=== PATIENT | female | born 1940 | race Hispanic/Latino ===

== ENCOUNTER → 2021-02-09 | Outpatient (CLI) | payer MEDICARE ==
[~2021-02-09] MED LIST: IOHEXOL 350 MG/ML 100ML INFUS..BTL IV ONE
== END | disposition home or self-care (01) ==
LOC: RAH 08:49
PROVIDERS: ATTEND Internal Medicine Cardiovascular Disease
DX: I35.1 Nonrheumatic aortic (valve) insufficiency (principal); R91.1 Solitary pulmonary nodule; K80.20 Calculus of gallbladder without cholecystitis without obstruction; K57.30 Diverticulosis of large intestine without perforation or abscess without bleeding
CPT/HCPCS: 74174; 75574; Q9967

== ENCOUNTER 2022-04-06 16:36 | Emergency (ER) | payer MEDICARE ==
[~2022-04-06] VITALS: Ht 170.2 cm; Wt 92.1 kg
[2022-04-06 16:39] VITALS: BP 137/57
[2022-04-06] MEDS ORDERED: KETOROLAC 60 MG VIAL (30MG/ML) IM ONE (17:30)
[2022-04-06] MEDS ORDERED: TRAM1TAB2 PO (17:53)
== END 2022-04-06 18:20 | disposition home or self-care (01) ==
LOC: EDH 16:36
DX: S83.91XA Sprain of unspecified site of right knee, initial encounter (principal); M17.11 Unilateral primary osteoarthritis, right knee; E11.9 Type 2 diabetes mellitus without complications; I10 Essential (primary) hypertension; M06.9 Rheumatoid arthritis, unspecified; Z98.890 Other specified postprocedural states; W01.0XXA Fall on same level from slipping, tripping and stumbling without subsequent striking against object, initial encounter; Y93.89 Activity, other specified; Y92.89 Other specified places as the place of occurrence of the external cause; Y99.8 Other external cause status
CPT/HCPCS: 99283; 73562; 96372; J1885

== ENCOUNTER 2022-07-17 05:52 | Observation (INO) | payer MEDICARE ==
[2022-07-14 10:44] LABS: BASOPHILS % (AUTO) 0.8 % (0.0-5.0); EOSINOPHILS % (AUTO) 0.3 % (0.0-8.0); HEMATOCRIT 32.9 % (36-48); MEAN CORPUSCULAR HEMOGLOBIN 34.1 pg (27.0-33.0); MEAN CORPUSCULAR HGB CONC 33.1 g/dL (32.0-36.0); MEAN CORPUSCULAR VOLUME 102.8 fL (79-99); MONOCYTES % (AUTO) 9.1 % (3.0-13.0); NEUTROPHILS % (AUTO) 54.6 % (40.0-77.0); PLATELET COUNT (AUTO) 272 K/uL (130-400); RED CELL DISTRIBUTION WIDTH 14.2 % (11.0-15.5); WHITE BLOOD COUNT (AUTO) 5.9 K/uL (4.8-10.8)
[2022-07-14 10:53] LABS: APPEARANCE,URINE CLEAR (CLEAR); BILIRUBIN,URINE NEGATIVE (NEGATIVE); COLOR,URINE LIGHT-YELLOW (YELLOW); GLUCOSE, URINE (UA) NEGATIVE (NEGATIVE); KETONES,URINE NEGATIVE (NEGATIVE); LEUKOCYTE ESTERASE ,URINE NEGATIVE Leu/uL (NEGATIVE); NITRATE,URINE NEGATIVE (NEGATIVE); OCCULT BLOOD,URINE NEGATIVE (NEGATIVE); PH,URINE 5.5 (5.0-8.0); PROTEIN,URINE NEGATIVE (NEGATIVE); UROBILINOGEN,URINE 0.2 mg/dL (0.2-1.0)
[2022-07-14 10:57] LABS: INR 0.93 (0.85-1.15); PROTHROMBIN TIME 9.9 SEC (9.6-11.6)
[2022-07-14 10:58] LABS: PARTIAL THROMBOPLASTIN TIME 27.3 SEC (26.3-35.5)
[2022-07-14 11:00] LABS: CARBON DIOXIDE 29 mmol/L (21-32); CHLORIDE 100 mmol/L (101-111); CREATININE 1.2 mg/dL (0.5-1.5); GLOMERULAR FILTR. RATE CALC 46 mL/min (>60); GLUCOSE,RANDOM 102 mg/dL (70-105); POTASSIUM 4.3 mmol/L (3.5-5.1); SODIUM SERUM 135 mmol/L (136-145); UREA NITROGEN, BLOOD 18 mg/dL (7-18)
[2022-07-14 11:22] VITALS: BP 146/65
[2022-07-14 12:01] LABS: CRP QUANTITATIVE < 2.00 mg/L (0.00-9.0)
[2022-07-17] VITALS (28 sets, daily range): BP systolic 108–158; BP diastolic 44–67
[~2022-07-17] VITALS: Ht 167.6 cm; Wt 90.7 kg
[~2022-07-17 05:52] MED LIST changes: +AEC81 PO; +DOCU100T PO; +FOLIC ACID PO; +GABA-529 PO; -IOHEXOL 350 MG/ML 100ML INFUS..BTL IV ONE; +KETOROLAC 30MG VIAL (30MG/ML) ONE; +LATA7.5D OP; +LISI1TAB49 PO; +METF-445 PO; +METH2.5T6 PO; +NAPR-1023 PO; +PANT40TA54 PO; +ROPIVACAINE 0.5% 5MG/ML 30ML IJ ONE; +SULF500T75 PO; +TYLENOL ARTHRITIS PO
[2022-07-17] MEDS ORDERED: CEFAZOLIN SODIUM 1 GM VIAL IVP SCH (06:00)
[2022-07-17] MEDS ORDERED: 0.9%NACL 1000ML 1,000 ML IV ONE (06:18)
[2022-07-17] MEDS ORDERED: PROPOFOL 10 MG/ML 20ML VIAL IV ONE (07:13)
[2022-07-17] MEDS ORDERED: MIDAZOLAM HCL 1 MG/ML 2ML VIAL ONE (07:13)
[2022-07-17] MEDS ORDERED: DEXAMETHASONE SOD PHOSPHATE 10MG/ML 1ML VIAL ONE (07:13)
[2022-07-17] MEDS ORDERED: ROCURONIUM 10MG/1ML SYR 10 MG/ML ML ONE (07:13)
[2022-07-17] MEDS ORDERED: FENTANYL CITRATE PF 50 MCG/1 ML 2ML VIAL ONE (07:13)
[2022-07-17] MEDS ORDERED: TRANEXAMIC ACID 1000MG/10ML ONE (07:14)
[2022-07-17] MEDS ORDERED: CEFAZOLIN SODIUM 2 GM VIAL IVP ONE (07:19)
[2022-07-17] MEDS ORDERED: TRANEXAMIC ACID 1000MG/10ML IV ONE (07:20)
[2022-07-17] MEDS ORDERED: KETOROLAC 30MG VIAL (30MG/ML) IM ONE (07:55)
[2022-07-17] MEDS ORDERED: ROPIVACAINE 0.5% 5MG/ML 30ML IJ ONE (07:55)
[2022-07-17] MEDS ORDERED: GLYCOPYRROLATE 1 MG/5 ML SYRINGE ONE (09:03)
[2022-07-17] MEDS ORDERED: CALCIUM CARB 500MG PO PRN (09:30)
[2022-07-17] MEDS ORDERED: LIDOCAINE HCL-MPF 1% 2ML VIAL IV PRN (09:30)
[2022-07-17] MEDS ORDERED: KCL 20 MEQ ERTAB PO PRN (09:30)
[2022-07-17] MEDS ORDERED: POTASSIUM CHLORIDE 10% ELIXIR 20 MEQ/15 ML UDCUP PO PRN (09:30)
[2022-07-17] MEDS ORDERED: POTASSIUM CHLORIDE 20MEQ/100ML 100 ML IV PRN (09:30)
[2022-07-17] MEDS ORDERED: CYCLOBENZAPRINE HCL 10 MG TABLET PO PRN (09:30)
[2022-07-17] MEDS ORDERED: FERROUS FUMARATE 324 MG TABLET PO PRN (09:30)
[2022-07-17] MEDS ORDERED: TRAMADOL HCL 50 MG TABLET PO PRN (09:30)
[2022-07-17] MEDS ORDERED: ONDANSETRON 4MG INJ IVP PRN (09:30)
[2022-07-17] MEDS ORDERED: MEPERIDINE-PF 25 MG/ML SYG ONE ×2 (10:16→10:24)
[2022-07-17] MEDS ORDERED: DOCUSATE SODIUM 100 MG CAP PO PRN (10:30)
[2022-07-17] MEDS ORDERED: TYLENOL ARTHRITIS PO PRN (10:30)
[2022-07-17] MEDS: 0.9%NACL 1000ML 1,000 ML IV SCH ×3 (11:17→22:43)
[2022-07-17] MEDS: CEFAZOLIN SODIUM 1 GM VIAL IVP SCH ×2 (14:31→22:43)
[2022-07-17] MEDS: FOLIC ACID 1 MG TABLET PO SCH ×2 (14:32→19:48)
[2022-07-17] MEDS: GABAPENTIN 100 MG CAPSULE PO SCH ×2 (14:32→19:49)
[2022-07-17] MEDS: HYDROCODONE/ACETAMINOPHEN 5/325 MG TAB PO PRN ×2 (14:40→19:18)
[2022-07-17] MEDS ORDERED: SIMV-43 PO (19:21)
[2022-07-17] MEDS: SULFADIAZINE 500 MG PO SCH (19:27)
[2022-07-17] MEDS: LATANOPROST 2.5 ML DROPS OP SCH (19:27)
[2022-07-17] MEDS: DOCUSATE SODIUM 100 MG CAP PO SCH (19:49)
[2022-07-18 04:35] VITALS: BP 114/50
[2022-07-18 04:45] LABS: HEMATOCRIT 24.5 % (36-48); MEAN CORPUSCULAR HEMOGLOBIN 34.2 pg (27.0-33.0); MEAN CORPUSCULAR HGB CONC 33.1 g/dL (32.0-36.0); MEAN CORPUSCULAR VOLUME 103.4 fL (79-99); RED BLOOD CELL COUNT(AUTO) 2.37 MIL/uL (4.00-5.50); RED CELL DISTRIBUTION WIDTH 14.4 % (11.0-15.5); WHITE BLOOD COUNT (AUTO) 8.7 K/uL (4.8-10.8)
[2022-07-18 05:17] LABS: CREATININE 1.1 mg/dL (0.5-1.5); POTASSIUM 4.3 mmol/L (3.5-5.1)
[2022-07-18] MEDS ORDERED: PANTOPRAZOLE 40 MG TAB DR ONE (06:14)
[2022-07-18] MEDS: PANTOPRAZOLE 40 MG TAB DR PO SCH (06:19)
[2022-07-18] MEDS: HYDROCODONE/ACETAMINOPHEN 5/325 MG TAB PO PRN ×3 (06:19→16:21)
[2022-07-18 07:30] VITALS: BP 119/50
[2022-07-18] MEDS: METFORMIN HCL 850 MG TABLET PO SCH (08:00)
[2022-07-18] MEDS: POLYETHYLENE GLYCOL 3350 17 GM POWD.PACK PO SCH (08:32)
[2022-07-18] MEDS: GABAPENTIN 100 MG CAPSULE PO SCH ×3 (08:33→19:54)
[2022-07-18] MEDS: FOLIC ACID 1 MG TABLET PO SCH ×3 (08:33→19:54)
[2022-07-18] MEDS: ASPIRIN 325MG TAB PO SCH (08:33)
[2022-07-18] MEDS: DOCUSATE SODIUM 100 MG CAP PO SCH ×2 (08:33→19:54)
[2022-07-18] MEDS: LISINOPRIL 10 MG TABLET PO SCH (08:34)
[2022-07-18] MEDS: HYDROCHLOROTHIAZIDE 25 MG TABLET PO SCH (08:34)
[2022-07-18] MEDS: SULFADIAZINE 500 MG PO SCH ×2 (08:34→21:00)
[2022-07-18] MEDS: METHOTREXATE SODIUM 2.5 MG TABLET PO SCH (09:00)
[2022-07-18 11:00] VITALS: BP 114/36
[2022-07-18 16:00] VITALS: BP 148/46
[2022-07-18 18:01] VITALS: BP 119/76
[2022-07-18] MEDS: LATANOPROST 2.5 ML DROPS OP SCH (19:19)
[2022-07-18 21:36] VITALS: BP 125/46
[2022-07-19 00:46] VITALS: BP 141/47
[2022-07-19] MEDS: HYDROCODONE/ACETAMINOPHEN 5/325 MG TAB PO PRN ×3 (04:27→13:24)
[2022-07-19 05:19] VITALS: BP 130/50
[2022-07-19] MEDS: PANTOPRAZOLE 40 MG TAB DR PO SCH (06:03)
[2022-07-19 07:30] VITALS: BP 144/60
[2022-07-19] MEDS: ASPIRIN 325MG TAB PO SCH (08:15)
[2022-07-19] MEDS: METFORMIN HCL 850 MG TABLET PO SCH (08:15)
[2022-07-19] MEDS: POLYETHYLENE GLYCOL 3350 17 GM POWD.PACK PO SCH (08:15)
[2022-07-19] MEDS: LISINOPRIL 10 MG TABLET PO SCH (08:16)
[2022-07-19] MEDS: DOCUSATE SODIUM 100 MG CAP PO SCH (08:16)
[2022-07-19] MEDS: HYDROCHLOROTHIAZIDE 25 MG TABLET PO SCH (08:17)
[2022-07-19] MEDS: SULFADIAZINE 500 MG PO SCH (08:20)
[2022-07-19] MEDS: METHOTREXATE SODIUM 2.5 MG TABLET PO SCH (08:20)
[2022-07-19] MEDS: FOLIC ACID 1 MG TABLET PO SCH (08:57)
[2022-07-19] MEDS: GABAPENTIN 100 MG CAPSULE PO SCH (08:57)
[2022-07-19 11:00] VITALS: BP 106/30
[2022-07-19] MEDS ORDERED: CYCL-309 PO (15:41)
[2022-07-19] MEDS ORDERED: HYDR-4060 PO (15:41)
[2022-07-19] MEDS ORDERED: ASPI-1026 PO (15:41)
[2022-07-20] MEDS ORDERED: BISACODYL 10 MG SUPP.RECT RC PRN (09:30)
== END 2022-07-19 17:15 | disposition home health service (06) ==
LOC: DAH 05:52 → DAHIP 05:53 → 4DH 11:00
PROVIDERS: ADMIT Student in an Organized Health Care Education/Training Program; ATTEND Student in an Organized Health Care Education/Training Program
DX: M17.11 Unilateral primary osteoarthritis, right knee (principal); Z20.822 Contact with and (suspected) exposure to COVID-19; D62 Acute posthemorrhagic anemia; M06.061 Rheumatoid arthritis without rheumatoid factor, right knee; M25.561 Pain in right knee; G89.29 Other chronic pain; M06.9 Rheumatoid arthritis, unspecified; Z79.899 Other long term (current) drug therapy; Z98.890 Other specified postprocedural states
CPT/HCPCS: 82040; 80048 ×2; 85025; 85610; 85730; 87088; 84134; 86140; 87426; 81003; 36415 ×2; 87641; 97039 ×6; 27447; 96374; 96376; 76942; 64447; 82948; 73560; 97161; 85027; 97116 ×4; 97530 ×4; A6260; A4223 ×2; G0378 ×53; A4663; J7030 ×2; A4215 ×2; A4600; J3010; J0690 ×4; J3490 ×3; J1100; J2250; J2704; J1885 ×2; J2175 ×2; J2795 ×3; G0168; A4649 ×3; A4930 ×2; C1776; A6255; A5120; A4222; A4221; A4216; J8610 ×2